=== PATIENT | female | born 1980 | race Caucasian/White ===

== ENCOUNTER 2016-11-13 23:57 | Emergency (ER) | payer OTHER ==
[~2016-11-13] VITALS: Ht 154.9 cm; Wt 56.7 kg
[~2016-11-13 23:57] MED LIST: ACETAMINOPHEN325 M1 PO; FLEXERIL PO; HYDROCODON-ACE1 EAC7 PO; IBUPROFEN 600600 M1 PO; LIDODERM 5%1 PATCH TOP; LORTAB 5 MG/5001 TA1 PO; MOBIC15 MG PO; MOBIC7.5 MG PO; NEURONTIN800 MG PO; NORCO 5-325 TA1 EACH PO; PEPCID40 MG PO; PERCOCET 5-3251 EACH PO; PREDNISONE 20 M20 MG PO; TYLENOL EX-STR500 M2 PO; VALIUM2 MG PO; VALIUM5 MG PO; ZOFRAN ODT4 MG PO
[2016-11-14 00:02] VITALS: BP 110/79
[2016-11-14] MEDS ORDERED: NORCO 5-325 TA1 EACH PO (00:15)
== END 2016-11-14 00:47 | disposition home or self-care (01) ==
LOC: ER 23:57
DX: S83.92XA Sprain of unspecified site of left knee, initial encounter (principal); Z90.89 Acquired absence of other organs; Z87.891 Personal history of nicotine dependence; X58.XXXA Exposure to other specified factors, initial encounter; Y93.89 Activity, other specified; Y92.89 Other specified places as the place of occurrence of the external cause; Y99.9 Unspecified external cause status

== ENCOUNTER 2017-07-30 12:50 | Emergency (ER) | payer OTHER ==
[~2017-07-30] VITALS: Ht 154.9 cm; Wt 56.7 kg
[~2017-07-30 12:50] MED LIST changes: +NOHOMEMEDICATIONS
[2017-07-30 13:09] LABS: ABSOLUTE NEUTROPHILS 7.9 thou/uL (1.4-8.2); HEMATOCRIT 43.7 % (37.0-47.0); HEMOGLOBIN 15.2 gm/dL (12.0-15.0); LYMPHOCYTES 6.6 % (24.0-44.0); MCH 33.3 pg (26.0-34.0); MCHC 34.8 g/dL (28.0-37.0); MCV 95.8 fL (80.0-100.0); MONOCYTES 7.3 % (1.0-8.0); PLATELET COUNT 183 thou/uL (150-400); POLYS 85.1 % (36.0-66.0); RBC 4.56 mil/uL (4.20-5.00); RDW 13.7 % (10.5-14.5); WBC 9.3 thou/uL (4.0-11.0)
[2017-07-30 13:18] LABS: CALCIUM 8.4 mg/dL (8.5-10.1); CREATININE 0.8 mg/dL (0.6-1.0); POTASSIUM 3.5 mmol/L (3.5-5.1)
[2017-07-30] MEDS ORDERED: ZPAK PO (13:58)
[2017-07-30] MEDS ORDERED: TESSALON PERLE100 MG PO (13:58)
[2017-07-30 14:52] VITALS: BP 98/58
== END 2017-07-30 14:55 | disposition home or self-care (01) ==
LOC: ER 12:50
PROVIDERS: Emergency Medicine
DX: J18.9 Pneumonia, unspecified organism (principal); F17.210 Nicotine dependence, cigarettes, uncomplicated; Z90.49 Acquired absence of other specified parts of digestive tract

== ENCOUNTER 2017-12-02 12:02 | Emergency (ER) | payer OTHER ==
[~2017-12-02] VITALS: Ht 152.4 cm; Wt 59.0 kg
[~2017-12-02 12:02] MED LIST changes: +TESSALON PERLE100 MG PO; +ZPAK PO
[2017-12-02] MEDS ORDERED: VALIUM2 MG PO (12:34)
[2017-12-02 13:11] VITALS: BP 115/81
== END 2017-12-02 13:15 | disposition home or self-care (01) ==
LOC: ER 12:02
DX: M62.838 Other muscle spasm (principal); F41.9 Anxiety disorder, unspecified; F17.210 Nicotine dependence, cigarettes, uncomplicated; Z90.49 Acquired absence of other specified parts of digestive tract

== ENCOUNTER 2018-02-07 16:16 | Emergency (ER) | payer OTHER ==
[~2018-02-07] VITALS: Ht 152.4 cm; Wt 56.7 kg
--- NOTE | ~2018-02-07 | EKG ---
[address] [address] ELECTROCARDIOGRAM REPORT Name: ISAAC SCHULER Room #: [facility]P [facility]ALE[facility] [id number] Admission: 02/07/18 Attend Phys: Discharge: 02/07/18 Date of : 76 Report #: [id number] THIS REPORT FOR: //name// 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
[2018-02-07 17:09] LABS: HEMATOCRIT 39.9 % (37.0-47.0); MCV 97.2 fL (80.0-100.0); RBC 4.11 mil/uL (4.20-5.00); RDW 12.7 % (10.5-14.5); WBC 6.6 thou/uL (4.0-11.0)
[2018-02-07 17:29] LABS: CALCIUM 8.5 mg/dL (8.5-10.1); CREATININE 0.6 mg/dL (0.6-1.0)
[2018-02-07 17:39] LABS: POTASSIUM 2.9 mmol/L (3.5-5.1)
[2018-02-07] MEDS ORDERED: POTASSIUM20 PO (17:55)
[2018-02-07 18:50] VITALS: BP 109/77
== END 2018-02-07 18:51 | disposition home or self-care (01) ==
LOC: ER 16:16
PROVIDERS: Emergency Medicine
DX: F41.9 Anxiety disorder, unspecified (principal); F17.210 Nicotine dependence, cigarettes, uncomplicated; Z90.49 Acquired absence of other specified parts of digestive tract

== ENCOUNTER 2019-03-04 01:16 | Emergency (ER) | payer OTHER ==
[~2019-03-04] VITALS: Ht 152.4 cm; Wt 62.6 kg
[~2019-03-04 01:16] MED LIST changes: +POTASSIUM20 PO
[2019-03-04] MEDS ORDERED: MOBIC15 MG PO (02:58)
[2019-03-04 03:24] VITALS: BP 122/79
== END 2019-03-04 03:20 | disposition home or self-care (01) ==
LOC: ER 01:16
DX: M25.511 Pain in right shoulder (principal); F17.210 Nicotine dependence, cigarettes, uncomplicated; Z90.49 Acquired absence of other specified parts of digestive tract

== ENCOUNTER 2019-08-24 17:54 | Emergency (ER) | payer OTHER ==
[~2019-08-24] VITALS: Ht 152.4 cm; Wt 65.8 kg
[2019-08-24 18:18] LABS: URINE BILIRUBIN NEGATIVE (Negative); URINE BLOOD NEGATIVE (Negative); URINE CLARITY CLEAR; URINE COLOR YELLOW; URINE GLUCOSE-RANDOM* NEGATIVE (Negative); URINE KETONES NEGATIVE (Negative); URINE LEUKOCYTES-REFLEX NEGATIVE (Negative); URINE NITRITE-REFLEX NEGATIVE (Negative); URINE PROTEIN (DIPSTICK) NEGATIVE (Negative); URINE SPECIFIC GRAVITY <= 1.005 (1.005-1.035); URINE UROBILINOGEN 0.2 E.U./dl (0.2-1.0)
[2019-08-24 18:24] LABS: AMP/METHAMP POSITIVE (Negative); BARBITURATES Negative (Negative); BENZODIAZEPINES POSITIVE (Negative); COCAINE Negative (Negative); METHADONE Negative (Negative); OPIATES Negative (Negative); PCP Negative (Negative)
[2019-08-24 18:33] LABS: ABSOLUTE NEUTROPHILS 4.3 thou/uL (1.4-8.2); BASOPHILS 0.5 % (0.0-2.0); EOSINOPHILS 1.2 % (0.0-3.0); HEMATOCRIT 44.4 % (37.0-47.0); HEMOGLOBIN 14.7 gm/dL (12.0-15.0); LYMPHOCYTES 32.5 % (24.0-44.0); MCH 32.2 pg (26.0-34.0); MCHC 33.2 g/dL (28.0-37.0); MCV 96.8 fL (80.0-100.0); MONOCYTES 8.4 % (1.0-8.0); PLATELET COUNT 295 thou/uL (150-400); POLYS 57.4 % (36.0-66.0); RBC 4.58 mil/uL (4.20-5.00); RDW 15.5 % (10.5-14.5); WBC 7.6 thou/uL (4.0-11.0)
[2019-08-24 18:41] LABS: ANION GAP 8 mmol/L (7-16); BUN 4 mg/dL (7-18); CALCIUM 8.5 mg/dL (8.5-10.1); CHLORIDE 105 mmol/L (98-107); CO2 32 mmol/L (21-32); CREATININE 0.7 mg/dL (0.6-1.0); GLUCOSE 106 mg/dL (74-106); POTASSIUM 3.3 mmol/L (3.5-5.1); SODIUM 145 mmol/L (136-145)
[2019-08-24 18:48] LABS: ALBUMIN 3.7 g/dL (3.4-5.0); SALICYLATE 4.4 mg/dL (2.8-20.0); SGOT 56 U/L (15-37); SGPT 54 U/L (30-65); TOTAL BILIRUBIN 0.2 mg/dL (<0.1-1.0); TOTAL PROTEIN 7.9 g/dL (6.4-8.2)
[2019-08-24 23:01] VITALS: BP 108/71
== END 2019-08-24 23:20 | disposition home or self-care (01) ==
LOC: ER 17:54
PROVIDERS: Physician Assistant
DX: F10.129 Alcohol abuse with intoxication, unspecified (principal); Y90.8 Blood alcohol level of 240 mg/100 ml or more; F17.210 Nicotine dependence, cigarettes, uncomplicated; Z90.49 Acquired absence of other specified parts of digestive tract; Z79.899 Other long term (current) drug therapy

== ENCOUNTER 2020-09-30 18:55 | Emergency (ER) | payer OTHER ==
[~2020-09-30] VITALS: Ht 152.4 cm; Wt 68.0 kg
[2020-09-30 19:02] VITALS: BP 127/81
[2020-09-30] MEDS ORDERED: NOHOMEMEDICATIONS (19:08)
[2020-09-30 19:32] LABS: URINE BLOOD 2+ (Negative); URINE CLARITY CLEAR; URINE COLOR YELLOW; URINE GLUCOSE-RANDOM* NEGATIVE (Negative); URINE KETONES TRACE (Negative); URINE NITRITE-REFLEX NEGATIVE (Negative); URINE PROTEIN (DIPSTICK) 2+ (Negative); URINE SPECIFIC GRAVITY >= 1.030 (1.005-1.035)
[2020-09-30 19:37] LABS: URINE LEUKOCYTES-REFLEX 2+ (Negative)
[2020-09-30 19:40] LABS: ICTOTEST (BILI CONFIRMATORY) Negative (Negative); URINE BILIRUBIN NEGATIVE (Negative)
[2020-09-30 19:46] LABS: MUCUS 4-6 Moderate strn/LPF (None Seen); SQUAMOUS >10 Many /LPF (0-3)
[2020-09-30 19:47] LABS: BACTERIA-REFLEX >30 Many /HPF (None Seen)
[2020-09-30 19:50] LABS: CASTS None Seen /LPF (None Seen); CRYSTALS None Seen /LPF (None Seen); URINE RBC 3-10 Few /HPF (0-2)
[2020-09-30] MEDS ORDERED: FLAGYL500 M1 PO (20:04)
== END 2020-09-30 20:32 | disposition home or self-care (01) ==
LOC: ER 18:55
PROVIDERS: Emergency Medicine
DX: N39.3 Stress incontinence (female) (male) (principal); A59.9 Trichomoniasis, unspecified; F17.210 Nicotine dependence, cigarettes, uncomplicated; Z90.49 Acquired absence of other specified parts of digestive tract

== ENCOUNTER 2020-10-03 11:14 | Emergency (ER) | payer OTHER ==
[~2020-10-03] VITALS: Ht 152.4 cm; Wt 63.5 kg
[~2020-10-03 11:14] MED LIST changes: +FLAGYL500 M1 PO
[2020-10-03] MEDS ORDERED: VIBRAMYCIN 100100 M2 PO (11:58)
[2020-10-03 12:16] VITALS: BP 114/72
[2020-10-04] MEDS ORDERED: ZOFRAN ODT4 MG PO (00:12)
== END 2020-10-03 12:17 | disposition home or self-care (01) ==
LOC: ER 11:14
DX: S70.362A Insect bite (nonvenomous), left thigh, initial encounter (principal); L03.116 Cellulitis of left lower limb; F17.210 Nicotine dependence, cigarettes, uncomplicated; Z90.49 Acquired absence of other specified parts of digestive tract; Z79.899 Other long term (current) drug therapy; W57.XXXA Bitten or stung by nonvenomous insect and other nonvenomous arthropods, initial encounter; Y93.89 Activity, other specified; Y92.89 Other specified places as the place of occurrence of the external cause; Y99.8 Other external cause status

== ENCOUNTER 2020-10-03 22:07 | Emergency (ER) | payer OTHER ==
[~2020-10-03] VITALS: Ht 152.4 cm; Wt 68.0 kg
[~2020-10-03 22:07] MED LIST changes: +VIBRAMYCIN 100100 M2 PO
[2020-10-03 23:08] LABS: ABSOLUTE NEUTROPHILS 3.8 thou/uL (1.4-8.2); BASOPHILS 0.7 % (0.0-2.0); EOSINOPHILS 3.3 % (0.0-3.0); HEMATOCRIT 38.4 % (37.0-47.0); HEMOGLOBIN 13.3 gm/dL (12.0-15.0); LYMPHOCYTES 25.6 % (24.0-44.0); MCHC 34.5 g/dL (28.0-37.0); MCV 98.4 fL (80.0-100.0); MONOCYTES 7.5 % (1.0-8.0); PLATELET COUNT 206 thou/uL (150-400); POLYS 62.9 % (36.0-66.0); RBC 3.91 mil/uL (4.20-5.00); RDW 16.6 % (10.5-14.5); WBC 6.1 thou/uL (4.0-11.0)
[2020-10-03 23:11] LABS: CALCIUM 8.2 mg/dL (8.5-10.1); CREATININE 0.7 mg/dL (0.6-1.0)
[2020-10-03 23:16] LABS: POTASSIUM 2.9 mmol/L (3.5-5.1)
[2020-10-03 23:17] LABS: ALBUMIN 3.5 g/dL (3.4-5.0); TOTAL BILIRUBIN 0.3 mg/dL (0.2-1.0)
[2020-10-04] MEDS ORDERED: ZOFRAN ODT4 MG PO (00:12)
[2020-10-04 00:18] VITALS: BP 121/81
--- NOTE | 2020-10-04 07:02 | EKG ---
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1980 Requested By: Frank Dennison Order Number: [id number] MD: Esvin Au Measurements Intervals [place] Rate: 77 P: 56 [place]: 176 QRS: 19 QRSD: 119 T: 31 QT: 440 QTc: 499 Interpretive Statements Sinus rhythm Nonspecific intraventricular conduction delay Low voltage, precordial leads Compared to ECG 02/07/2018 16:38:53 Intraventricular conduction delay now present Low QRS voltage now present Electronically Signed On 10-04-2020 7:02:35 CDT by Esvin Au [email or web address] <ELECTRONICALLY SIGNED> By: Esvin Au MD, [facility] 10/04/20701 2344 [id number] Esvin Au MD, FACC /EPI
== END 2020-10-04 00:20 | disposition home or self-care (01) ==
LOC: ER 22:07
PROVIDERS: Emergency Medicine
DX: S70.362D Insect bite (nonvenomous), left thigh, subsequent encounter (principal); R11.2 Nausea with vomiting, unspecified; E87.6 Hypokalemia; F17.210 Nicotine dependence, cigarettes, uncomplicated; Z90.49 Acquired absence of other specified parts of digestive tract; Z79.899 Other long term (current) drug therapy; W57.XXXD Bitten or stung by nonvenomous insect and other nonvenomous arthropods, subsequent encounter